=== PATIENT | male | born 2000 | race Caucasian/White ===

== ENCOUNTER 2024-10-09 13:24 | Emergency (ER) | payer MEDICAID, SELFPAY ==
[2024-10-09 13:22] VITALS: BP 129/86; PULSE 77; RESP 16; TEMP 36.8; O2SAT 100; BMI 32.5
--- NOTE | 2024-10-09 13:26 | PC.NURSE ---
fsbs 164
--- NOTE | 2024-10-09 13:27 | PC.NURSE ---
Patients FSBS is 164.
[2024-10-09 14:24] LABS: Hematocrit 44.8 % (42.0-52.0); Hemoglobin 15.2 g/dL (14.1-18.0); Immature Granulocytes % 0.6 %; Mean Corpuscular HGB Conc 33.9 g/dL (31.8-35.4); Mean Corpuscular Hemoglobin 30.0 pg (27.0-31.2); Mean Corpuscular Volume 88.5 fl (80-94); Nucleated Red Blood Cells % 0 %; Platelet Count 224 K/mm3 (142-424); Red Blood Count 5.06 M/mm3 (4.60-6.20); Red Cell Distribution Width-SD 40.4 fL; White Blood Count 14.0 K/mm3 (4.8-10.8)
[2024-10-09 14:30] VITALS: PULSE 73; O2SAT 100
[2024-10-09 14:39] LABS: Albumin Level 4.7 g/dl (3.5-5.0); Chloride 108 mmol/L (98-107); Potassium 4.0 mmoL/L (3.5-5.1); Sodium 139 mmol/L (136-145)
[2024-10-09 14:42] LABS: Alanine Aminotransferase 34 U/L (12-78); Albumin/Globulin Ratio 1.7 (1.1-1.8); Alkaline Phosphatase 80 U/L (38-126); Anion Gap 10.0 mEq/L (5-15); Aspartate Amino Transferase 31 U/L (17-59); Bilirubin,Total 0.5 mg/dl (0.2-1.3); Blood Urea Nitrogen 12 mg/dl (9-20); Calcium 9.2 mg/dl (8.4-10.2); Carbon Dioxide 25 mmol/L (22.0-30.0); Creatinine Clearance Estimated 177 mL/min (50-200); Creatinine,Serum 0.90 mg/dl (0.66-1.25); Estimated Glomerular Filt Rate 103 ml/min (>60); GFR (African American) 124 ML/MIN (>60); Globulin 2.7 g/dL (1.3-3.2); Glucose 118 mg/dl (74-100); Total Protein,Serum 7.4 g/dl (6.3-8.2)
--- NOTE | 2024-10-09 14:45 | PC.NURSE ---
pt provided ice chips
--- NOTE | 2024-10-09 14:56 | PC.NURSE ---
pt provided warm blanket
[2024-10-09 15:02] LABS: Troponin I < 0.01 ng/ml (0.00-0.034)
--- NOTE | 2024-10-09 15:08 | ED_ITS ---
Discharge Plan Disposition Patient Disposition: Home, Self-Care Referrals Follow up/Referrals: Osmani Noble MD [Primary Care Provider, Family Practice] - See instructions Clinical Impressions Clinical Impression: Heat exposure, Syncope, vasovagal Print Language Print Language: Dominican Discharge ED Provider: Trupti Diaz General Adult HPI General Chief complaint: Dizziness Stated complaint: WEAKNESS Time Seen by Provider: 10/09/24 15:00 Mode of Arrival: EMS Source of Information: Patient and EMS Description of Symptoms (Recalled from ER Triage Doc. by RN): pt reports feeling weak and dizzy after being out in the heat moving furniture. he states he had not eaten anything today only drank water. denies any health problems. no c/o pain. looks well appearing History of Present Illness HPI narrative: Patient is a 24-year-old male with no pertinent past medical history presents emergency department for evaluation of syncope. Patient was in a car on his way to a family member's house who is in the hospital that is critically ill. They have no air conditioning in this car and rode in the car for some time. Upon arrival at the residence patient stated that he felt weird and numb and tingly. Patient then syncopized and does not remember passing out had a few jerks afterwards and returned to baseline. They present here for continued evaluation. Please note that above description of symptoms, in this electronic medical record under categorization of recalled from ER triage doctor by RN are reflective of an initial nursing assessment, however, is not reflective of my full history and physical exam that was personally taken and clarified. Consequentially, this preceding description of symptoms, which may include the patient's categorized chief complaint in the EMR, do not reflect my personal clinical impression, and the ultimate description of history of present illness and patient stated complaints should be deferred to this section of the note. Unless stated otherwise or congruent with this section of the note, additional signs, symptoms, or incongruence should be interpreted as inaccurate with my clinical impression. Related Data Allergies Allergy/AdvReac Type Severity Reaction Status Date / Time No Known Allergies Allergy Verified 10/09/24 13:25 [facility] Disclaimer: The information contained in this section may have been updated after the patient was seen, as this information can be updated by other users. Social History Smoking Status: Current every day smoker alcohol intake: never current occupational status: other Travel in the last 8 weeks?: None ROS Obtained: Yes Systems reviewed as appropriate & no additional complaints except as documented Physical Exam General General appearance: alert and in no apparent distress Head Head exam: atraumatic and normocephalic Eye Eye exam: Present PERRL ENT ENT exam: Present mucous membranes moist Neck Neck exam: Present normal inspection Chest Chest inspection: Present normal inspection and symmetric chest wall rise Respiratory Respiratory exam: Present normal lung sounds bilaterally; Absent respiratory distress Cardiovascular Cardiovascular exam: Present regular rate and normal rhythm Abdominal Exam Abdominal exam: Present soft; Absent tenderness Extremities Exam Extremities exam: Present normal inspection Neurological Exam Neurological exam: Present alert and CN II-XII intact Psychiatric Psychiatric exam: Present normal affect Skin Skin exam: Present warm and dry Medical Decision Making Medical Records Screening: Per USPSTF and CDC recommendations, given the prevalence of disease in our region, it is our hospital?s policy to screen for HIV and viral Hepatitis for all patients aged 18 and over and those with ongoing risk factors. Scott Inquiry Pt receiving controlled substance: No Vital Signs: 10/09/24 13:22 10/09/24 14:30 Temperature 98.2 F Temperature Source Oral Pulse Rate 73 Pulse Rate [Right] 77 Respiratory Rate 16 Blood Pressure [Right Arm] 129/86 Blood Pressure Mean [Right Arm] 100 02 Sat by Pulse Oximetry 100 100 Oxygen Delivery Method Room Air Lab Data Lab Results 10/09/24 14:15: WBC 14.0 H, RBC 5.06, Hgb 15.2, Hct 44.8, MCV 88.5, MCH 30.0, MCHC 33.9, RDW 12.3, Plt Count 224, MPV 10.8 H, Neut % (Auto) 83.2 H, Lymph % (Auto) 10.3, Sumner % (Auto) 4.8, Eos % (Auto) 0.6, Baso % (Auto) 0.5, Neut # (Auto) 11.6 H, Lymph # (Auto) 1.5, Sumner # (Auto) 0.7, Eos # (Auto) 0.1, Baso # (Auto) 0.1, Sodium 139, Potassium 4.0, Chloride 108 H, Carbon Dioxide 25, Anion Gap 10.0, BUN 12, Creatinine 0.90, Estimated Creat Clear 177, Estimated GFR 103, Est GFR ( Amer) 124, Glucose 118 H, Calcium 9.2, Total Bilirubin 0.5, AST 31, ALT 34, Alkaline Phosphatase 80, Troponin I < 0.01, Total Protein 7.4, Albumin 4.7, Globulin 2.7, Albumin/Globulin Ratio 1.7 10/09/24 14:15 10/09/24 14:15 Orders (Tests/Meds): ED MEDICATIONS Discontinued Medications Generic Name Dose Route Start Last Admin Trade Name Christian PRN Reason Stop Dose Admin Lactated Ringer's 500 mls @ 999 mls/hr 10/09/24 15:08 10/09/24 15:09 Lactated Ringer's 500ml IV 10/09/24 15:38 999 mls/hr .Q31M ONE Administration ORDERS Category Date Time Status Complete Blood Count Auto Diff Stat Lab 10/09/24 14:15 Completed Comprehensive Metabolic Panel Stat Lab 10/09/24 14:15 Completed Trop I [Troponin I] Stat Lab 10/09/24 14:15 Completed Troponin I Q3H Lab 10/09/24 19:30 Ordered EKG Request [ECG Request] Stat Y 10/09/24 15:07 Ordered ECG Data Tracing #1: Independently inter by me rate is 60, rhythm is irregular, sinus arrhythmia, QTc 380, no ST elevation in anatomical contiguous leads, no high degree AV block no dagger Q waves in the lateral leads no evidence of delta waves no evidence of type II Brugada. Medical Decision Narrative: In summary patient is a 24-year-old male with past medical history described above who presents emergency department for evaluation of syncope. Patient is hemodynamically stable and nontoxic-appearing upon arrival, afebrile. Based on history and physical exam patient has classic vasovagal syncope from heat exposure. His temperature today is normal. He received crystalloid bolus prior to arrival. Workup screening for critical electrolyte derangement and electro physiologic changes will be conducted with hematologic labs and EKG. Initial inventions include crystalloid bolus. No head trauma reported therefore CT imaging the head was considered but we deferred at this time. Initial hematologic labs reviewed by me, mild leukocytosis which is not concerning to me. No critical electrolyte abnormality or [place]AS[place]Y initial troponin undetectably low. On repeat evaluation patient was ambulatory at bedside. Patient has no concerning EKG findings and is appropriate for outpatient management at this time. Critical Care Critical Care Time Critical Care Time: No
[2024-10-09] MEDS: RINGERS SOLUTION,LACTATED 500 ML 999 ML IV (15:09)
--- NOTE | 2024-10-09 15:31 | ECG_ITS ---
APPROVED REPORT Exam: Resting ECG HR:60 bpm ECG Measurements Heart Rate 60 AXES IN 152 P 48 QRSd 86 QRS 64 QT 380 T 16 QTc 380 Conclusion SINUS RHYTHM WITH SINUS ARRHYTHMIA NORMAL ECG Electronically signed by : OREN DELGADO, 10/09/2024 21:54:10
--- NOTE | 2024-10-09 16:35 | PC.NURSE ---
i ambulated pt through out unit. he tolerated well
[2024-10-09 16:44] VITALS: BP 144/84; PULSE 75; RESP 14; TEMP 36.9; O2SAT 97
== END 2024-10-09 16:49 | disposition home or self-care (01) ==
PROVIDERS: Student in an Organized Health Care Education/Training Program; Emergency Provider Emergency Medicine; PCP Family Medicine
DX: R55 Syncope and collapse (principal); I49.9 Cardiac arrhythmia, unspecified; R53.1 Weakness; T67.9XXA Effect of heat and light, unspecified, initial encounter; F17.210 Nicotine dependence, cigarettes, uncomplicated
CPT/HCPCS: 80053; 84484; 85025; 93005; 99283; J7120